=== PATIENT | female | born 1995 | race Two or more races ===

== ENCOUNTER 2018-08-17 00:05 | Emergency (ER) | payer SELFPAY ==
[~2018-08-17] VITALS: Ht 152.4 cm; Wt 104.3 kg
[2018-08-17] MEDS: IPRATRPIUM/ALBUTEROL 0.5/2.5MG 3 ML NEBU. NEB ONE (00:35)
[2018-08-17 01:43] VITALS: BP 137/83
--- NOTE | 2018-08-17 01:53 | PHYS DOC ---
Past Medical History Past Medical History: Asthma Past Surgical History: No Surgical History Alcohol Use: Occasionally Drug Use: None Adult General Chief Complaint Chief Complaint: ASTHMA HPI HPI Patient is a 23-year-old female who presents with complaint of asthma exacerbation. Patient states that symptoms began a couple of hours ago and states that she used her asthma inhaler without any improvement. She denies any fever. She states that symptoms are worsened with exertion. She indicates that she does not have a nebulizer at home. She states that nothing is improving her symptoms. Review of Systems Review of Systems Constitutional: Denies fever or chills [] Respiratory: Complains of dry cough, wheezing and shortness of breath [] Cardiovascular: No additional information not addressed in HPI [] Integument: Denies rash or skin lesions [] Neurologic: Denies headache, focal weakness or sensory changes [] Current Medications Current Medications Current Medications Medications (Trade) Dose Ordered Sig/Eusebio Start Time Stop Time Status Last Admin Dose Admin Albuterol/ Ipratropium (Duoneb) 3 ml 1X ONCE 08/17/18 00:30 08/17/18 00:44 DC 08/17/18 00:35 3 ML Allergies Allergies Allergies Coded Allergies Type Severity Reaction Last Updated Verified No Known Drug Allergies 08/17/18 No Physical Exam Physical Exam Constitutional: Well developed, well nourished, no acute distress, non-toxic appearance. [] HENT: Normocephalic, atraumatic, bilateral external ears normal, oropharynx moist, no oral exudates, nose normal. [] Cardiovascular: Regular rate and rhythm[] Lungs & Thorax: Fairly good air movement is noted throughout with fine inspiratory and expiratory wheezes to auscultation [] Skin: Warm, dry, no erythema, no rash. [] Extremities: No tenderness, no cyanosis, no clubbing, ROM intact, no edema. [] Current Patient Data Vital Signs Vital Signs Date Time Temp Pulse Resp B/P (MAP) Pulse Ox O2 Delivery O2 Flow Rate FiO2 08/17/18 01:43 92 18 137/83 (101) 98 Room Air 08/17/18 00:05 97.9 97.9 EKG EKG [] Radiology/Procedures Radiology/Procedures [] Course & Med Decision Making Course & Med Decision Making Pertinent Labs and Imaging studies reviewed. (See chart for details) Patient given single DuoNeb treatment and reevaluated post treatment. Patient states his symptoms are significantly improved. Reinspection of patient's lungs demonstrate resolution of wheezing. Dragon Disclaimer Dragon Disclaimer This electronic medical record was generated, in whole or in part, using a voice recognition dictation system. Departure Departure Impression: Primary Impression: Asthma exacerbation Disposition: 01 HOME, SELF-CARE Condition: STABLE Referrals: NO PCP (PCP) Patient Instructions: Asthma, Adult Problem Qualifiers Primary Impression: Asthma exacerbation Asthma severity: mild Asthma persistence: unspecified Qualified Codes: J45.901 - Unspecified asthma with (acute) exacerbation STEVE STEPHENS Jr. DO Aug 17, 2018 01:53
== END 2018-08-17 02:02 | disposition home or self-care (01) ==
LOC: ER 00:05
DX: J45.901 Unspecified asthma with (acute) exacerbation (principal)
CPT/HCPCS: 94640; 99283; J7620

== ENCOUNTER 2021-10-10 19:24 | Emergency (ER) | payer SELFPAY ==
[~2021-10-10] VITALS: Ht 154.9 cm; Wt 100.0 kg
--- NOTE | 2021-10-10 19:41 | PHYS DOC ---
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 Patient denies any fever. Denies any chest pain. Reports chest tightness. States she does not have any inhalers. (ERICH ALTAMIRANO COTTON CLE[employer]ER) Review of Systems: Review of Systems: Constitutional: Denies fever or chills. [] Eyes: Denies change in visual acuity. [] HENT: Denies nasal congestion or sore throat. [] Respiratory: Reports shortness of breath Cardiovascular: Denies chest pain or edema. [] GI: Denies abdominal pain, nausea, vomiting, bloody stools or diarrhea. [] : Denies dysuria. [] Musculoskeletal: Denies back pain or joint pain. [] Integument: Denies rash. [] Neurologic: Denies headache, focal weakness or sensory changes. [] Psychiatric: Denies depression or anxiety. [] (ERICH ALTAMIRANO Norm COTTON CLE[employer]ER) Heart Score: C/O Chest Pain: N/A Risk Factors: Risk Factors: DM, Current or recent (<one month) smoker, HTN, HLP, family history of CAD, obesity. Risk Scores: Score 0 - 3: 2.5% MACE over next 6 weeks - Discharge Home Score 4 - 6: 20.3% MACE over next 6 weeks - Admit for Clinical Observation Score 7 - 10: 72.7% MACE over next 6 weeks - Early Invasive Strategies (ERICH ALTAMIRANO Norm [employer]ER) Current Medications: Current Medications Medications (Trade) Dose Ordered Sig/Eusebio Start Time Stop Time Status Last Admin Dose Admin Methylprednisolone Sodium Succinate (SOLU-Medrol 125MG VIAL) 125 mg 1X ONCE 10/10/21 19:45 10/10/21 19:46 UNV (ADARSHERICH Norm [employer]ER) Allergies: Allergies: Allergies Coded Allergies Type Severity Reaction Last Updated Verified No Known Drug Allergies 10/10/21 No (ERICH ALTAMIRANO C[employer] CLE[employer]ER) Physical Exam: PE: Constitutional: Well developed, well nourished, no acute distress, non-toxic appearance. [] HENT: Normocephalic, atraumatic, bilateral external ears normal, oropharynx moist, no oral exudates, nose normal. [] Eyes: PERRLA, EOMI, conjunctiva normal, no discharge. [] Neck: Normal range of motion, no tenderness, supple, no stridor. [] Cardiovascular:Heart rate regular rhythm, no murmur [] Lungs & Thorax: Bilateral breath sounds clear to auscultation [] Abdomen: Bowel sounds normal, soft, no tenderness, no masses, no pulsatile masses. [] Skin: Warm, dry, no erythema, no rash. [] Back: No tenderness, no CVA tenderness. [] Extremities: No tenderness, no cyanosis, no clubbing, ROM intact, no edema. [] Neurologic: Alert and oriented X 3, normal motor function, normal sensory function, no focal deficits noted. [] Psychologic: Affect normal, judgement normal, mood normal. [] (ERICH ALTAMIRANO APRN) EKG: EK interpreted by Dr. Jimenez sinus rhythm heart rate 68 no STEMI [] [address] Jimenez sinus rhythm heart rate 64 no STEMI [] (ERICH ALTAMIRANO APRN) Radiology/Procedures: Radiology/Procedures: []PROCEDURE: PORTABLE CHEST 1V Exam: Chest one view INDICATION: Short of air, pain TECHNIQUE: Frontal view of the chest Comparisons: None FINDINGS: The cardiomediastinal silhouette and pulmonary vessels are within normal limits. The lung and pleural spaces are clear. IMPRESSION: No acute cardiopulmonary process. Electronically signed by: Jessica Wesley MD (10/10/2021 8:50 PM) [facility] DICTATED and SIGNED BY: JESSICA WESLEY MD DATE: 10/10/212048 (ERICH ALTAMIRANO APRN) Course & Med Decision Making: Course & Med Decision Making Pertinent Labs and Imaging studies reviewed. (See chart for details) This a 26-year-old female patient presented to the ED today with shortness of breath, symptoms began yesterday. History of asthma. Has no inhalers. Patient is afebrile. O2 sats 98% on room air and above chest x-ray interpreted by radiologist is negative for any acute findings. Negative influenza A and B, negative rapid COVID test. CBC CMP troponin are negative. Discharged to home with albuterol inhaler. Provided return precautions and discharged in stable condition (ERICH ALTAMIRANO APRN) [place] Disclaimer: Radha Disclaimer: This electronic medical record was generated, in whole or in part, using a voice recognition dictation system. (ERICH ALTAMIRANO APRN) Departure Departure Impression: Primary Impression: Shortness of breath Disposition: HOME / SELF CARE / HOMELESS Condition: STABLE Referrals: NO PCP (PCP) Follow-up with your doctor in 1 to 2 weeks Patient Instructions: Shortness of Breath, [id number] Additional Instructions: You were evaluated in the emergency room for shortness of breath, your chest x- ray is negative, your lab work is negative for any acute findings. Your symptoms are likely asthma. Use the prescribed inhaler as needed for your symptoms. Follow-up with your primary care doctor next week, come back to the ED at any point symptoms worsen Scripts Albuterol Sulfate (PROAIR HFA INHALER) 8.5 Gm Hfa.aer.ad 2 PUFF IH PRN Q4-6HRS PRN for wheezing for 21 Days, #1 INHALER 0 Refills Prov: ERICH ALTAMIRANO APRN 10/10/21 Attending Signature Attending Signature I have reviewed the PA/LABORER SHIPYARD's note and plan of care. I was available for consultation as needed during the patient's visit in the emergency department. I agree with the clinical impression, plan, and disposition. (DELBERT JIMENEZ DO) ERICH ALTAMIRANO APRN October 10, 2021 19:41 DELBERT JIMENEZ DO October 11, 2021 00:12
[2021-10-10] MEDS ORDERED: methylPREDNISolone SOD SUCC PF 125 MG/2 ML VIAL. IV ONE (19:45)
[2021-10-10 20:03] LABS: BASO # 0.1 x10^3/uL (0.0-0.2); BASO % 1 % (0-3); EOS # 0.8 x10^3/uL (0.0-0.7); EOS % 10 % (0-3); HEMOGLOBIN 14.8 g/dL (12.0-15.5); LYMPH # 2.2 x10^3/uL (1.0-4.8); LYMPH % 27 % (24-48); MEAN CORPUSCULAR HEMOGLOBIN 30 pg (25-35); MEAN CORPUSCULAR HGB CONC 35 g/dL (31-37); MEAN CORPUSCULAR VOLUME 85 fL (79-100); MONO # 0.5 x10^3/uL (0.0-1.1); MONO % 6 % (0-9); NEUT # 4.6 x10^3/uL (1.8-7.7); NEUT % 56 % (31-73); PLATELET COUNT 281 x10^3/uL (140-400); RED BLOOD COUNT 4.92 x10^6/uL (3.50-5.40); RED CELL DISTRIBUTION WIDTH 14.6 % (11.5-14.5); WHITE BLOOD COUNT 8.3 x10^3/uL (4.0-11.0)
[2021-10-10 20:18] LABS: CALCIUM 8.7 mg/dL (8.5-10.1); CREATININE 0.8 mg/dL (0.6-1.0); GFR 87.4; POTASSIUM 3.6 mmol/L (3.5-5.1)
[2021-10-10 20:20] LABS: BARBITURATES NEG (NEG); BENZODIAZEPINES NEG (NEG); CANNABINOIDS POS (NEG); COCAINE NEG (NEG); METHADONE NEG (NEG); OPIATES NEG (NEG); PHENCYCLIDINE NEG (NEG)
[2021-10-10 20:20] LABS: INFLUENZA A PATIENT NEGATIVE (NEGATIVE); INFLUENZA B PATIENT NEGATIVE (NEGATIVE)
[2021-10-10 20:24] LABS: ALBUMIN 3.7 g/dL (3.4-5.0); ALBUMIN/GLOBULIN RATIO 0.9 (1.0-1.7); MAGNESIUM 1.8 mg/dL (1.8-2.4); TOTAL BILIRUBIN 0.6 mg/dL (0.2-1.0); TOTAL PROTEIN 7.8 g/dL (6.4-8.2)
[2021-10-10 20:25] LABS: AMPHETAMINE/METHAMPHETAMINE NEG (NEG)
--- NOTE | 2021-10-10 20:53 | RAD ---
Exam: Chest one view INDICATION: Short of air, pain TECHNIQUE: Frontal view of the chest Comparisons: None FINDINGS: The cardiomediastinal silhouette and pulmonary vessels are within normal limits. The lung and pleural spaces are clear. IMPRESSION: No acute cardiopulmonary process. Electronically signed by: Jessica Saleh MD (10/10/2021 8:50 PM) [facility]
[2021-10-10] MEDS ORDERED: ALBU2.5V8 IH (21:03)
[2021-10-10] MEDS ORDERED: IPRATRPIUM/ALBUTEROL 0.5/2.5MG 3 ML NEBU. NEB ONE (21:30)
[2021-10-10 21:34] VITALS: BP 112/78
--- NOTE | 2021-10-10 21:55 | EKG ---
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
--- NOTE | 2021-10-10 22:03 | EKG ---
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
== END 2021-10-10 21:55 | disposition home or self-care (01) ==
LOC: ER 19:24
DX: R06.02 Shortness of breath (principal); R07.89 Other chest pain; J45.909 Unspecified asthma, uncomplicated; Z20.822 Contact with and (suspected) exposure to COVID-19
CPT/HCPCS: 36415; 71045; 80053; 80307; 81025; 83735; 83880; 84443; 84484; 85025; 87428; 93005; 94640; 96374; 99285; J2930